=== PATIENT | female | born 1985 | race Caucasian/White ===

== ENCOUNTER → 2021-09-06 | Day surgery (SDC) | payer OTHER ==
[~2021-09-06] VITALS: Ht 160 cm; Wt 95.2 kg
[~2021-09-06] MED LIST: METFORMIN HCL750 MG PO; MULTIVITAMIN1 EACH PO; [UNRECOGNIZED DRUG - OTHER] PO
[2021-09-06 06:50] LABS: HCT 42.5 % (37.0-47.0); HGB 14.7 g/dl (12.5-16.0); MCH 29.4 pg (25.0-31.0); MCHC 34.6 g/dL (32.0-36.0); MPV 9.6 fL (6.0-9.5); RDW 12.2 % (11.5-14.0); WBC 10.4 K/uL (4.0-10.5)
[2021-09-06 07:21] LABS: HCG (URINE) SCREEN NEGATIVE (NEGATIVE)
== END | disposition home or self-care (01) ==
LOC: FAS 06:11
PROVIDERS: Specialist
DX: D25.9 Leiomyoma of uterus, unspecified (principal); N80.0 Endometriosis of uterus; N72 Inflammatory disease of cervix uteri; N92.1 Excessive and frequent menstruation with irregular cycle; E28.2 Polycystic ovarian syndrome; F41.9 Anxiety disorder, unspecified; F32.A Depression, unspecified; F17.200 Nicotine dependence, unspecified, uncomplicated; Z79.84 Long term (current) use of oral hypoglycemic drugs; Z79.899 Other long term (current) drug therapy; Z80.3 Family history of malignant neoplasm of breast
CPT/HCPCS: 36415; 74018; 84703; 86850; 86900; 86901; 93005; J0690; J1100; J1170; J2250; J2405; J2550; J2704; J2710; J3010; J7120

== ENCOUNTER 2021-09-09 04:54 | Emergency (ER) | payer OTHER ==
[2021-09-09 05:48] LABS: BASOPHIL 0.3 % (0-2); EOSINOPHIL 0.1 % (0-5); HCT 38.3 % (37.0-47.0); HGB 12.9 g/dl (12.5-16.0); LYMPHOCYTE 24.5 % (15-48); MCH 29.6 pg (25.0-31.0); MCHC 33.7 g/dL (32.0-36.0); MCV 87.8 fL (78.0-100.0); MPV 9.8 fL (6.0-9.5); NEUTROPHIL 68.6 % (41-80); NRBC 0; PLT 267 K/uL (150-400); RBC 4.36 M/uL (4.20-5.40); RDW 12.5 % (11.5-14.0)
[2021-09-09 06:03] LABS: ALBUMIN 3.3 g/dL (3.4-5.0); BILIRUBIN - TOTAL 0.2 mg/dL (0.2-1.0); BUN/CREAT RATIO (CALC) 16.9 RATIO; CREATININE 0.77 mg/dL (0.51-0.95); GLOBULIN (CALCULATION) 2.8 g/dL; POTASSIUM 4.1 mmol/L (3.5-5.1); TOTAL PROTEIN 6.1 g/dL (6.4-8.2)
[2021-09-09 06:27] LABS: LACTIC ACID 0.9 mmol/L (0.4-1.9)
[2021-09-09 07:17] LABS: BILIRUBIN NEGATIVE (NEGATIVE); BLOOD 1+ Ery/uL (NEGATIVE); CLARITY CLEAR (CLEAR); COLOR YELLOW (YELLOW); GLUCOSE (U) NORMAL (NORMAL); LEUKOCYTES NEGATIVE Leu/uL (NEGATIVE); NITRITE NEGATIVE (NEGATIVE); PROTEIN NEGATIVE (NEGATIVE); UROBILINOGEN 0.2 mg/dL (0.2-1.0)
[2021-09-09 07:51] LABS: URINARY WBC RARE
[2021-09-09 07:58] LABS: URINARY RBC RARE
== END 2021-09-09 10:45 | disposition home or self-care (01) ==
LOC: FER 04:54
PROVIDERS: Emergency Medicine Emergency Medical Services
DX: G89.18 Other acute postprocedural pain (principal); Z90.711 Acquired absence of uterus with remaining cervical stump
CPT/HCPCS: 36415; 76856; 80053; 81001; 83605; 83690; 85025; Q9967